=== PATIENT | male | born 1970 | race Caucasian/White ===

== ENCOUNTER 2017-03-18 15:11 | Emergency (ER) | payer BC, OTHER ==
[~2017-03-18] VITALS: Ht 165.1 cm; Wt 70.5 kg
[2017-03-18 15:14] VITALS: Ht 165.1 cm; Wt 70.5 kg
[2017-03-18] MEDS ORDERED: ONDANSETRON 4 MG INJ IV STA (15:33)
[2017-03-18] MEDS ORDERED: morphine 4 MG/ML VIAL IV STA (15:33)
[2017-03-18 15:57] LABS: BASOPHILS % 0.3 % (0.0-2.0); EOSINOPHILS # 0.1 10^3/ul (0.0-0.5); EOSINOPHILS % 1.4 % (0.0-7.0); HEMATOCRIT 48.6 % (42.0-52.0); HEMOGLOBIN 15.8 g/dl (14.0-18.0); LYMPHOCYTES # 2.1 10^3/ul (0.8-2.9); LYMPHOCYTES % 24.5 % (15.0-51.0); MEAN CORPUSCULAR HGB CONC 32.5 g/dl (32.0-37.0); MEAN CORPUSCULAR VOLUME 89.3 fl (82.0-101.0); MEAN PLATELET VOLUME 11.1 fl (7.4-10.4); MONOCYTE # 0.4 10^3/ul (0.3-0.9); MONOCYTES % 4.8 % (0.0-11.0); NEUTROPHILS % 68.8 % (39.0-77.0); PLATELET COUNT 226 10^3/UL (140-415); RED BLOOD COUNT 5.44 10^6/ul (4.70-6.10); RED CELL DISTRIBUTION WIDTH 12.2 % (11.5-14.5); WHITE BLOOD COUNT 8.7 10^3/ul (4.8-10.8)
[2017-03-18 16:00] LABS: ADD UMIC NO; UR ASCORBIC ACID NEGATIVE (NEGATIVE); UR BILIRUBIN (Dip) NEGATIVE (NEGATIVE); UR BLOOD (Dip) NEGATIVE (NEGATIVE); UR CLARITY CLEAR (CLEAR); UR COLOR YELLOW (YELLOW); UR GLUCOSE (Dip) NEGATIVE (NEGATIVE); UR KETONES (Dip) 1+ mg/dL (NEGATIVE); UR LEUKOCYTE ESTERASE (Dip) NEGATIVE Leu/ul (NEGATIVE); UR NITRITE (Dip) NEGATIVE (NEGATIVE); UR SPECIFIC GRAVITY (Dip) 1.013 (1.003-1.030); UR TOTAL PROTEIN (Dip) NEGATIVE (NEGATIVE); UR UROBILINOGEN (Dip) NEGATIVE (NEGATIVE)
[2017-03-18 16:04] LABS: ADD SCAN DIFF NO
[2017-03-18 16:15] LABS: ALBUMIN 5.4 g/dl (3.3-4.9); ALBUMIN/GLOBULIN RATIO 1.68; BILIRUBIN,INDIRECT 0.8 mg/dl (0-1.1); BILIRUBIN,TOTAL 0.8 mg/dl (0.2-1.3); CALCIUM 10.1 mg/dl (8.4-10.2); CREATININE 1.11 mg/dl (0.61-1.24); TOTAL PROTEIN 8.6 g/dl (6.1-8.1)
[2017-03-18] MEDS ORDERED: PANTOPRAZOLE 40 MG INJ IV ONE (16:30)
[2017-03-18] MEDS ORDERED: SOD CHLORIDE 0.9% 100 ML ONE (16:34)
[2017-03-18] MEDS ORDERED: IOHEXOL 300MG/ML 150 ML BTL ONE (16:34)
--- NOTE | 2017-03-18 16:53 | RADRPT ---
PROCEDURE: CT Abdomen and Pelvis with contrast. CLINICAL INDICATION: Abdominal pain. TECHNIQUE: Routine abdominopelvic CT was performed following administration of intravenous contras t and reformatted in the axial, coronal, sagittal planes. Intravenous contrast: 80 cc of Optiray 320. Radiation dose: CTDIvol (mGy) = 6.7; total DLP (mGy-cm) = 382. One or more of the following radiation dose techniques were used: -Automated exposure control. -Adjust of the mA and/or kV according to patient size. -Use of iterative reconstruction technique. COMPARISON: None. FINDINGS: Liver, gallbladder, biliary system, pancreas, adrenal glands, spleen, and kidneys are within normal limits. Mild nonspecific submucosal fat deposition noted in the colon. No significant pericolonic or perien teric inflammation. There is no bowel obstruction. No secondary signs of appendicitis. No mesente larry or retroperitoneal lymphadenopathy. Trace aortic calcifications without aneurysm. No free fluid or fluid collection. No lymphadenopathy. Lung bases are clear. No suspicious bone lesions. IMPRESSION: No abdominopelvic mass, lymphadenopathy, or focal acute inflammatory process. RPTAT: EE .Gutierrez Mojica MD, MD Date Time Electronically viewed and signed by .Gutierrez Mojica MD, on 03/18/2017 16:57 .C/
[2017-03-18] MEDS ORDERED: PANT40TA3 PO (17:09)
[2017-03-18] MEDS ORDERED: ACET1TAB40 PO (17:09)
--- NOTE | 2017-03-18 17:13 | ERD ---
ER Documentation Chief Complaint Date/Time DATE: 03/18/17 TIME: 17:11 Chief Complaint ABDOMINAL PAIN X 10 DAYS HPI This 46-year-old male complains of a 10 day history of upper abdominal pain. He describes as burning. He saw a clinic who prescribed him Cipro which he is taking without relief. Denies any measured fevers. Possibly some mild nausea but no vomiting. He has possibly pain radiating down to his mid abdomen possibly some dysuria. Denies any diarrhea or right lower quadrant abdominal pain. He has a history of appendectomy. ROS All systems reviewed and are negative except as per history of present illness. Medications Home Meds Active Scripts Pantoprazole* (Protonix*) 40 Mg Tablet.dr, 40 MG PO DAILY, #15 TAB Prov:EL BRUNNER MD 03/18/17 Acetaminophen with Codeine (Acetaminophen-Cod #3 Tablet) 1 Each Tablet, 1 TAB PO Q6H Y for PAIN, #12 TAB Prov:EL BRUNNER MD 03/18/17 Allergies Allergies: Coded Allergies: No Known Allergy (Unverified , 03/18/17) PMhx/Soc Medical and Surgical Hx: pt denies Medical Hx History of Surgery: Yes (APPY) Physical Exam Vitals Vital Signs Date Time Temp Pulse Resp B/P Pulse Ox O2 Delivery O2 Flow Rate FiO2 03/18/17 15:14 98.8 102 18 146/88 97 Physical Exam Const: [], [id number]. Head: Atraumatic Eyes: Normal Conjunctiva ENT: Normal External Ears, Nose and Mouth. Neck: Full range of motion..~ No meningismus. Resp: Clear to auscultation bilaterally Cardio: Regular rate and rhythm, no murmurs Abd: Soft, minimal tenderness in the upper abdomen area above the umbilicus. There is no localized or significant focal tenderness. There is no masses. There is no tenderness at McBurney's point and no significant Garcia sign. non distended. Normal bowel sounds Skin: No petechiae or rashes Back: No midline or flank tenderness Ext: No cyanosis, or edema Neur: Awake and alert Psych: Normal Mood and Affect Result Diagram: 03/18/17 1547 03/18/17 1547 Results 24 hrs Laboratory Tests Test 03/18/17 15:42 03/18/17 15:47 Urine Color YELLOW Urine Clarity CLEAR Urine pH 6.0 Urine Specific [place] 1.013 Urine Ketones 1+mg/dL Urine Nitrite NEGATIVEmg/dL Urine Bilirubin NEGATIVEmg/dL Urine Urobilinogen NEGATIVEmg/dL Urine Leukocyte Esterase NEGATIVELeu/ul Urine Hemoglobin NEGATIVEmg/dL Urine Glucose NEGATIVEmg/dL Urine Total Protein NEGATIVEmg/dl White Blood Count 8.710^3/ul Red Blood Count 5.4410^6/ul Hemoglobin 15.8g/dl Hematocrit 48.6% Mean Corpuscular Volume 89.3fl Mean Corpuscular Hemoglobin 29.0pg Mean Corpuscular Hemoglobin Concent 32.5g/dl Red Cell Distribution Width 12.2% Platelet Count 63268^3/UL Mean Platelet Volume 11.1fl Neutrophils % 68.8% Lymphocytes % 24.5% Monocytes % 4.8% Eosinophils % 1.4% Basophils % 0.3% Nucleated Red Blood Cells % 0.0/100WBC Neutrophils # 6.010^3/ul Lymphocytes # 2.110^3/ul Monocytes # 0.410^3/ul Eosinophils # 0.110^3/ul Basophils # 0.010^3/ul Nucleated Red Blood Cells # 0.010^3/ul Sodium Level 139mmol/L Potassium Level 4.0mmol/L Chloride Level 101mmol/L Carbon Dioxide Level 26mmol/L Anion Gap 16 Blood Urea Nitrogen 14mg/dl Creatinine 1.11mg/dl Glucose Level 107mg/dl Calcium Level 10.1mg/dl Total Bilirubin 0.8mg/dl Direct Bilirubin 0.00mg/dl Indirect Bilirubin 0.8mg/dl Aspartate Amino Transf (AST/SGOT) 28IU/L Alanine Aminotransferase (ALT/SGPT) 52IU/L Alkaline Phosphatase 72IU/L Total Protein 8.6g/dl Albumin 5.4g/dl Globulin 3.20g/dl Albumin/Globulin Ratio 1.68 Lipase 105U/L Current Medications Medications (Trade) Dose Ordered Sig/Nena Route PRN Reason Start Time Stop Time Status Last Admin Dose Admin Morphine Sulfate (morphine) 4 mg ONCE STAT IV 03/18/17 15:33 03/18/17 15:36 DC 03/18/17 16:15 Ondansetron HCl (Zofran Inj) 4 mg ONCE STAT IV 03/18/17 15:33 03/18/17 15:36 DC 03/18/17 16:15 Pantoprazole (Protonix Iv) 40 mg ONCE ONCE IV 03/18/17 16:30 03/18/17 16:36 DC 03/18/17 16:46 IV Flush 10 ml 10 ml STK-MED ONCE .ROUTE 03/18/17 16:34 03/18/17 16:35 DC 03/18/17 16:41 Sodium Chloride (NS) 100 ml @ ud STK-MED ONCE .ROUTE 03/18/17 16:34 03/18/17 16:35 DC 03/18/17 16:41 Iohexol (Omnipaque 300mg/ ml) 150 ml STK-MED ONCE .ROUTE 03/18/17 16:34 03/18/17 16:35 DC 03/18/17 16:41 Procedures/MDM CBC and CMP lipase normal. Patient was given morphine 4 mg IV and Zofran 4 mg IV for abdominal pain. Patient was given Protonix [address] abdomen pelvis to evaluate for uncertain cause of pain possibly diverticulitis performed which is read as normal by the radiologist. Patient presents with upper nonspecific abdominal pain for 10 days. He may will be treated empirically with Protonix for gastritis. There is no signs or symptoms of abscess, appendicitis, hepatobiliary disease, aortic disease, acute abdomen, additional emergent causes of presenting complaints. Patient is advised to follow-up with primary doctor this week return to the ER for new or worsening symptoms. The patient was stable with no new complaints during the ER course. Clinically, there is no current evidence to suggest meningitis, sepsis, acute abdomen, pneumonia, acute coronary syndrome, pulmonary embolism, or any other emergent condition appearing to require further evaluation or hospitalization. The patient should certainly return for any new or worsening symptoms per the aftercare instructions. They should otherwise follow-up with her primary care doctor for reevaluation this week. Departure Diagnosis: Primary Impression: Abdominal pain Abdominal location: upper abdomen, unspecified Qualified Code: R10.10 - Pain of upper abdomen Condition: Stable Patient Instructions: Abdominal Pain Ref[facility]: [facility] Usted se cox hecho un examen mdico de control que le indica que no est en mehrdad condicin que requiera tratamiento urgente en el Departamento de Emergencia. Un estudio ms profundo y el tratamiento de bennett condicin pueden esperar sin ningn riesgo hasta que usted sea atendida/o en el consultorio de bennett mdico o mehrdad cl basil. Es responsabilidad suya arreglar mehrdad ruthie para el seguimiento del sindi. MANEJO DE CONDICIONES NO URGENTES EN EL FUTURO 1) Si usted tiene un mdico de atencin primaria: Usted debera llamar a bennett mdico de atencin primaria antes de venir al departamento de emergencia. Despus de las horas de consultorio, bennett doctor o bennett asociado/a est disponible por telfono. El mdico o enfermero de rere en el servicio telefnico puede asesorarle por brain medio para atender el problema, o sindi contrario se puede programar mehrdad ruthie. 2) Si usted no tiene un mdico de atencin primaria: Llame al mdico o clnica de referencia que aparece abajo armin las horas de consultorio para hacer mehrdad ruthie para que le vean. CLINICAS: [facility] [phone] [facility] [phone] [facility]. [facility] [phone] [address] [facility]. [facility] [phone] [address] [facility]. [place] [id number] [phone] [facility]. [phone] [address] Additional Instructions: Examines normal hoy. Cheque otro vez con bennett doctor primario en el proximo wisdom or regresa para mas o nueva simptomas. EL BRUNNER MD Mar 18, 2017 17:13
== END 2017-03-18 17:26 | disposition home or self-care (01) ==
LOC: FTE 15:11
DX: R10.10 Upper abdominal pain, unspecified (principal)
CPT/HCPCS: 74177; 80053; 81003; 83690; 85025; C9113; J2270; J2405; Q9967; Z7610; 36415; 96374; 96375

== ENCOUNTER 2018-07-13 12:41 | Emergency (ER) | END 2018-07-13 14:34 | disposition home or self-care (01) ==

== ENCOUNTER 2018-12-17 17:23 | Emergency (ER) | payer BC ==
[~2018-12-17] VITALS: Ht 165.1 cm; Wt 71.7 kg
[~2018-12-17 17:23] MED LIST: ACET1TAB40 PO; DICY10CA40 PO; PANT40TA3 PO
[2018-12-17 17:32] VITALS: BP 146/87; PULSE 88; RESP 17; Ht 165.1 cm; Wt 71.7 kg
[2018-12-17] MEDS ORDERED: TAMS-14 PO (20:16)
[2018-12-17] MEDS ORDERED: CEPH-443 PO (20:16)
[2018-12-17] MEDS ORDERED: ACET-141 PO (20:17)
[2018-12-17] MEDS ORDERED: IBUP-1542 PO (20:17)
--- NOTE | 2018-12-17 20:18 | ERD ---
ER Documentation Chief Complaint Chief Complaint PAINFUL URINATION, BURNING, LOWER ABD/PELVIC PAIN ROS All systems reviewed and are negative except as per history of present illness. Medications Home Meds Active Scripts Acetaminophen* (Acetaminophen*) 500 MG Extra Strength Tablet, 500 MG PO Q4H PRN for PAIN AND OR ELEVATED TEMP, #30 TAB Prov:BARON COOPER DO 12/17/18 Ibuprofen* (Motrin*) 600 Mg Tab, 600 MG PO Q6H PRN for PAIN AND OR ELEVATED TEMP, #30 TAB Prov:BARON COOPER DO 12/17/18 Cephalexin* (Keflex*) 500 Mg Capsule, 500 MG PO TID for dysuria for 5 Days, #15 CAP Prov:BARON COOPER DO 12/17/18 Tamsulosin Hcl* (Flomax*) 0.4 Mg Cap.er.24h, 0.4 MG PO DAILY for kidney stone for 7 Days, #7 CAP Prov:BARON COOPER DO 12/17/18 Dicyclomine HCl (Dicyclomine HCl) 10 Mg Capsule, 10 MG PO TID PRN for ABDOMINAL CRAMPING, #20 CAP Prov:SIL MADRIGAL PA-C 07/13/18 Pantoprazole* (Protonix*) 40 Mg Tablet.dr, 40 MG PO DAILY, #15 TAB Prov:EL BRUNNER MD 03/18/17 Acetaminophen with Codeine (Acetaminophen-Cod #3 Tablet) 1 Each Tablet, 1 TAB PO Q6H PRN for PAIN, #12 TAB Prov:EL BRUNNER MD 03/18/17 Allergies Allergies: Coded Allergies: No Known Allergy (Unverified , 03/18/17) PMhx/Soc History of Surgery: Yes (APPY) Hx Alcohol Use: No Hx Substance Use: No Hx Tobacco Use: No Smoking Status: Never smoker Physical Exam Vitals Vital Signs Date Temp Pulse Resp B/P (MAP) Pulse Ox O2 O2 Flow FiO2 Time Delivery Rate 12/17/18 99.0 88 17 146/87 99 17:32 (106) Physical Exam Const: No acute distress Head: Atraumatic Eyes: Normal Conjunctiva ENT: Normal External Ears, Nose and Mouth. Neck: Full range of motion. No meningismus. Resp: Clear to auscultation bilaterally Cardio: Regular rate and rhythm, no murmurs Abd: Soft, non tender, non distended. Normal bowel sounds Skin: No petechiae or rashes Back: No midline or flank tenderness Ext: No cyanosis, or edema Neur: Awake and alert Psych: Normal Mood and Affect Result Diagram: 12/17/188 12/17/188 Results 24 hrs Laboratory Tests Test 12/17/18 18:18 White Blood Count 9.5 10^3/ul Red Blood Count 5.18 10^6/ul Hemoglobin 15.0 g/dl Hematocrit 46.8 % Mean Corpuscular Volume 90.3 fl Mean Corpuscular Hemoglobin 29.0 pg Mean Corpuscular Hemoglobin Concent 32.1 g/dl Red Cell Distribution Width 12.0 % Platelet Count 197 10^3/UL Mean Platelet Volume 11.0 fl Immature Granulocytes % 0.300 % Neutrophils % 72.8 % Lymphocytes % 19.7 % Monocytes % 5.7 % Eosinophils % 1.2 % Basophils % 0.3 % Nucleated Red Blood Cells % 0.0 /100WBC Immature Granulocytes # 0.030 10^3/ul Neutrophils # 6.9 10^3/ul Lymphocytes # 1.9 10^3/ul Monocytes # 0.5 10^3/ul Eosinophils # 0.1 10^3/ul Basophils # 0.0 10^3/ul Nucleated Red Blood Cells # 0.0 10^3/ul Urine Color STRAW Urine Clarity CLEAR Urine pH 7.0 Urine Specific [place] 1.004 Urine Ketones NEGATIVE mg/dL Urine Nitrite NEGATIVE mg/dL Urine Bilirubin NEGATIVE mg/dL Urine Urobilinogen NEGATIVE mg/dL Urine Leukocyte Esterase NEGATIVE Martha/ul Urine Hemoglobin NEGATIVE mg/dL Urine Glucose NEGATIVE mg/dL Urine Total Protein NEGATIVE mg/dl Sodium Level 139 mmol/L Potassium Level 4.3 mmol/L Chloride Level 103 mmol/L Carbon Dioxide Level 27 mmol/L Anion Gap 9 Blood Urea Nitrogen 14 mg/dl Creatinine 0.93 mg/dl Est Glomerular Filtrat Rate mL/min > 60 mL/min Glucose Level 136 mg/dl Calcium Level 10.3 mg/dl Total Bilirubin 0.8 mg/dl Direct Bilirubin 0.00 mg/dl Indirect Bilirubin 0.8 mg/dl Aspartate Amino Transf (AST/SGOT) 27 IU/L Alanine Aminotransferase (ALT/SGPT) 31 IU/L Alkaline Phosphatase 65 IU/L Total Protein 8.1 g/dl Albumin 4.9 g/dl Globulin 3.20 g/dl Albumin/Globulin Ratio 1.53 Lipase 124 U/L Departure Diagnosis: Primary Impression: Dysuria Condition: Fair Patient Instructions: Dysuria Additional Instructions: Call your primary care doctor TOMORROW for an appointment during the next 1-2 days.See the doctor sooner or return here if your condition worsens before your appointment time. BARON COOPER DO Dec 17, 2018 20:18
== END 2018-12-17 20:27 | disposition home or self-care (01) ==
LOC: FTE 17:23
DX: R30.0 Dysuria (principal)
CPT/HCPCS: 36415; 74018; 76775; 80053; 81003; 83690; 85025

== ENCOUNTER 2019-01-13 08:07 | Day surgery (SDC) | payer BC ==
[~2019-01-13] VITALS: Ht 165.1 cm; Wt 69.9 kg
[~2019-01-13 08:07] MED LIST changes: +ACET-141 PO; +CEPH-443 PO; +IBUP-1542 PO; +TAMS-14 PO
[2019-01-13 08:41] VITALS: Ht 165.1 cm; Wt 69.9 kg
[2019-01-13] MEDS ORDERED: RIFA550T4 PO (08:53)
--- NOTE | 2019-01-13 09:44 | PREAC ---
Date/Time of Note Date/Time of Note DATE: 01/13/19 TIME: 09:43 Anesthesia Eval and Record Evaluation Time Pre-Procedure Interview DATE: 01/13/19 TIME: 09:43 Age 48 Sex male NPO: 8 hrs Preoperative diagnosis chronic abdominal pain Planned procedure colonoscopy with biopsies Past Medical History Past Medical History: Includes Cardio: Dyslipidemia Surgery & Anesthesia Issues No known issue Meds Anticoagulation: No Beta Hanna within 24 hr: No Reason Beta Hanna not given: Pt. not on B-Hanna Active Scripts Ibuprofen* (Motrin*) 600 Mg Tab, 600 MG PO Q6H PRN for PAIN AND OR ELEVATED TEMP, #30 TAB Prov:BARON COOPER DO 12/17/18 Tamsulosin Hcl* (Flomax*) 0.4 Mg Cap.er.24h, 0.4 MG PO DAILY for kidney stone for 7 Days, #7 CAP Prov:BARON COOPER DO 12/17/18 Pantoprazole* (Protonix*) 40 Mg Tablet.dr, 40 MG PO DAILY, #15 TAB Prov:EL BRUNNER MD 03/18/17 Reported Medications Rifaximin* (Xifaxan*) 550 Mg Tablet, 550 MG PO BID, TAB 01/13/19 Discontinued Scripts Acetaminophen* (Acetaminophen*) 500 MG Extra Strength Tablet, 500 MG PO Q4H PRN for PAIN AND OR ELEVATED TEMP, #30 TAB Prov:BARON COOPER DO 12/17/18 Cephalexin* (Keflex*) 500 Mg Capsule, 500 MG PO TID for dysuria for 5 Days, #15 CAP Prov:BARON COOPER DO 12/17/18 Dicyclomine HCl (Dicyclomine HCl) 10 Mg Capsule, 10 MG PO TID PRN for ABDOMINAL CRAMPING, #20 CAP Prov:SIL MADRIGAL PA-C 07/13/18 Acetaminophen with Codeine (Acetaminophen-Cod #3 Tablet) 1 Each Tablet, 1 TAB PO Q6H PRN for PAIN, #12 TAB Prov:EL BRUNNER MD 03/18/17 Meds reviewed: Yes Allergies Coded Allergies: No Known Drug Allergies (Verified Allergy, Unknown, 01/13/19) Allergies Reviewed: Yes Labs/Studies Labs Reviewed: Reviewed by anesthesiologist test: N/A Pre-procedure Exam Airway: Adequate mouth opening, Adequate thyromental dist Mallampati: Mallampati II Teeth: Normal Lung: Normal Heart: Normal ASA Physical Status ASA physical status: 1 Emergency: None Planned Anesthetic General/MAC: MAC Planned Pain Management Parenteral pain med Pre-operative Attestations Prior to commencing anesthesia and surgery, the patient was re-evaluated, there was verification of: *The patient's identity *The results of appropriate recent lab work and preoperative vital signs *The above evaluation not changing prior to induction *Anesthetic plan, risk benefits, alternative and complications discussed with patient/family; questions answered; patient/family understands, accepts and wishes to proceed. Royer Ricketts M.D. Jan 13, 2019 09:44
[2019-01-13] MEDS ORDERED: PROPOFOL 40 ML ONE (09:46)
[2019-01-13] MEDS ORDERED: LIDOCAINE 100 MG SYRINGE ONE (09:46)
[2019-01-13 09:52] VITALS: BP 131/83; PULSE 71; RESP 20
--- NOTE | 2019-01-13 10:12 | HPN ---
Date/Time of Note Date/Time of Note DATE: 01/13/19 TIME: 10:11 Interval H&P Admission Note Pt. seen H&P reviewed: No system changes MIRANDA FU Jan 13, 2019 10:12
--- NOTE | 2019-01-13 10:13 | PAC ---
Date/Time of Note Date/Time of Note DATE: 01/13/19 TIME: 10:13 Post-Anesthesia Notes Post-Anesthesia Note Last documented vital signs HR;78 RR;14 BP 114/75 T;98.4 Activity: WNL Respiratory function: WNL Cardiovascular function: WNL Mental status: Baseline Pain reasonably controlled: Yes Hydration appropriate: Yes Nausea/Vomiting absent: Yes Royer Ricketts M.D. Jan 13, 2019 10:13
[2019-01-13 10:42] VITALS: BP 107/77; PULSE 62; RESP 20
== END 2019-01-13 11:36 | disposition home or self-care (01) ==
LOC: GIL 08:07
PROVIDERS: ATTEND Internal Medicine Gastroenterology
DX: R10.32 Left lower quadrant pain (principal)
CPT/HCPCS: 45378; J2001